=== PATIENT | male | born 1965 | race American Indian/Alaskan Native ===

== ENCOUNTER 2017-04-20 08:42 | Emergency (ER) | payer BC ==
--- NOTE | 2017-04-20 10:18 | Cat Scan Report ---
CT HEAD WITHOUT CONTRAST INDICATION: Syncope, right arm weakness. COMPARISON: None similar. FINDINGS: Noncontrast head CT demonstrates normal ventricles and sulci without acute or recent infarct, hemorrhage, mass effect or midline shift. No abnormal extra-axial fluid collections. Posterior fossa structures and basilar cisterns appear within normal limits. Symmetric eye globes. Clear paranasal sinuses and mastoid air cells. Intact calvarium. Normal overlying scalp soft tissues. Few missing teeth and a radiopaque dental material anteriorly incidentally noted. CONCLUSION: No acute intracranial CT abnormality, as described. Thank you for the opportunity to participate in this patient's care.
[2017-04-20 10:59] LABS: Basophils % (Auto) 0.4 % (0.0-1.8); Eosinophils % (Auto) 0.1 % (0.0-4.3); Hematocrit 45.7 % (35.5-45.6); Hemoglobin 14.8 gm/dl (11.8-15.2); Lymphocytes % (Auto) 21.5 % (13.4-35.0); Mean Corpuscular HGB Conc 32 % (32-34); Mean Corpuscular Hemoglobin 29 pg (28-32); Mean Corpuscular Volume 91 fl (84-94); Monocytes # (Auto) 0.7 K/mm3 (0.0-0.8); Platelet Count 184 K/mm3 (140-440); Red Blood Count 5.05 M/mm3 (3.65-5.03); Red Cell Distribution Width 13.9 % (13.2-15.2)
[2017-04-20 11:14] LABS: Partial Thromboplastin Time 30.6 Sec. (24.2-36.6)
[2017-04-20 11:19] LABS: BUN/Creatinine Ratio 12; Blood Urea Nitrogen 17 mg/dL (9-20); Calcium 9.2 mg/dL (8.4-10.2); Hemolysis Index 6
[2017-04-20] MEDS ORDERED: TORADOL IM ONE (18:29)
--- NOTE | 2017-04-20 18:35 | Emergency Department Report ---
ED General Adult HPI - General Chief complaint: Neuro Symptoms/Deficit Stated complaint: SYNCOPE, R ARM TINGLING Time Seen by Provider: 04/20/17 18:06 Source: patient Mode of arrival: Ambulatory Limitations: No Limitations - History of Present Illness Initial comments: 51 yo male who comes in today due to a syncopal episode. He states that he took on last pm his bystolic for blood pressure and mucinex shortly thereafter. He states that he was sitting in bed and started to feel funny. After that, he remembered coming to on the floor. He admits to cervical spine tenderness/ pain. States that he has never had an issue like this before. Admits to numbness/tingling in his right second/third digits in addition to cervical spine tenderness. Denies loss of bladder or bowel continence. -: Last night (1 am today ) Location: head, neck, upper extremity (right ) Radiation: non-radiation Severity scale (0 -10): 0 Quality: aching, other (throbbing ) Consistency: constant Improves with: none Associated Symptoms: denies other symptoms Treatments Prior to Arrival: none - Related Data Previous Rx's Medication Instructions Recorded Last Taken Type Cyclobenzaprine [Flexeril 10 MG 10 mg PO TID PRN #15 tablet 12/14/14 Unknown Rx TAB] Ibuprofen [Motrin] 800 mg PO Q8HR PRN #30 tablet 12/14/14 Unknown Rx Allergies Allergy/AdvReac Type Severity Reaction Status Date / Time No Known Allergies Allergy Verified 12/14/14 12:47 ED Review of Systems ROS: Stated complaint: SYNCOPE, R ARM TINGLING Other details as noted in HPI Constitutional: denies: chills, fever Eyes: denies: eye pain, eye discharge, vision change ENT: denies: ear pain, throat pain Respiratory: denies: cough, shortness of breath, wheezing Cardiovascular: denies: chest pain, palpitations Endocrine: no symptoms reported Gastrointestinal: denies: abdominal pain, nausea, diarrhea Genitourinary: denies: urgency, dysuria Musculoskeletal: other (neck pain ) Skin: denies: rash, lesions Neurological: other (numbness/tingling-right second/third digits ) Psychiatric: denies: anxiety, depression Hematological/Lymphatic: denies: easy bleeding, easy bruising ED Past Medical Hx - Past Medical History Previous Medical History?: Yes Hx Hypertension: Yes - Surgical History Hx Breast Surgery: No - Social History Smoking Status: Never Smoker Substance Use Type: None - Medications Home Medications: Home Medications Medication Instructions Recorded Confirmed Last Taken Type Cyclobenzaprine [Flexeril 10 MG 10 mg PO TID PRN #15 tablet 12/14/14 Unknown Rx TAB] Ibuprofen [Motrin] 800 mg PO Q8HR PRN #30 tablet 12/14/14 Unknown Rx ED Physical Exam - General Limitations: No Limitations General appearance: alert, in no apparent distress - Head Head exam: Present: atraumatic, normocephalic - Eye Eye exam: Present: normal appearance - ENT ENT exam: Present: mucous membranes moist - Neck Neck exam: Present: tenderness (on palpation) - Respiratory Respiratory exam: Present: normal lung sounds bilaterally. Absent: respiratory distress - Cardiovascular Cardiovascular Exam: Present: regular rate, normal rhythm. Absent: systolic murmur, diastolic murmur, rubs, gallop - Extremities Exam Extremities exam: Present: normal inspection - Back Exam Back exam: Present: normal inspection - Neurological Exam Neurological exam: Present: alert, oriented X3, CN II-XII intact - Psychiatric Psychiatric exam: Present: normal affect, normal mood - Skin Skin exam: Present: warm, dry, intact, normal color. Absent: rash ED Course Vital Signs 04/20/17 04/20/17 04/20/17 09:34 17:12 17:16 Temperature 99.1 F Pulse Rate 100 H 86 83 Respiratory 18 14 13 Rate Blood Pressure 130/96 133/94 Blood Pressure [Right] O2 Sat by Pulse 97 100 100 Oximetry 04/20/17 04/20/17 04/20/17 17:20 17:30 17:46 Temperature 98.1 F Pulse Rate 84 85 87 Respiratory 13 8 L 14 Rate Blood Pressure 133/97 133/97 Blood Pressure 133/94 [Right] O2 Sat by Pulse 100 99 100 Oximetry 04/20/17 04/20/17 04/20/17 18:00 18:16 18:30 Temperature Pulse Rate 82 88 86 Respiratory 20 14 22 Rate Blood Pressure 134/94 134/94 133/92 Blood Pressure [Right] O2 Sat by Pulse 99 Oximetry 04/20/17 04/20/17 04/20/17 19:33 19:42 19:46 Temperature Pulse Rate 93 H 94 H Respiratory 18 12 Rate Blood Pressure 133/92 133/92 Blood Pressure [Right] O2 Sat by Pulse 99 Oximetry ED Medical Decision Making - Lab Data Result diagrams: 04/20/17 10:33 04/20/17 10:33 - EKG Data -: EKG Interpreted by Me EKG shows normal: sinus rhythm Rate: normal - EKG Data When compared to previous EKG there are: previous EKG unavailable Interpretation: no acute changes, normal EKG - Radiology Data Radiology results: report reviewed (CT head/cervical spine-negative, Chest radiograph-negative ) - Medical Decision Making Polypharmacy Syncopal episode - Differential Diagnosis Polypharmacy, syncopal episode Critical care attestation.: If time is entered above; I have spent that time in minutes in the direct care of this critically ill patient, excluding procedure time. ED Disposition Clinical Impression: Polypharmacy, Episode of syncope Disposition: -01 TO HOME OR SELFCARE Is pt being admited?: No Does the pt Need Aspirin: No Condition: Stable Instructions: Syncope (ED) Additional Instructions: Please follow up with your provider as scheduled. Return to the ED for any chest pain, shortness of breath, lightheaded/dizziness, new onset weakness, neurologic deficits, or loss of bowel/bladder continence. Referrals: PRIMARY CARE, [Primary Care Provider] - 3-5 Days Time of Disposition: 20:28
--- NOTE | 2017-04-20 19:29 | Cat Scan Report ---
FINAL REPORT PROCEDURE: CT CERVICAL SPINE WO CON TECHNIQUE: Computerized tomography of the cervical spine was performed from the skull base to T1 without contrast material. HISTORY: neck pain-fall COMPARISON: No prior studies are available for comparison. FINDINGS: There is straightening of the usual cervical lordosis. 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 Degenerative changes are noted at C5-6 and C6-7, with disc space narrowing and osteophyte formation. No acute fracture or subluxation is seen. IMPRESSION: No acute fracture or subluxation is identified.
--- NOTE | 2017-04-20 19:58 | XRay Report ---
FINAL REPORT PROCEDURE: XR CHEST 1V AP TECHNIQUE: Chest radiograph anteroposterior view. CPT 06553 HISTORY: chest pain COMPARISON: No prior studies are available for comparison. FINDINGS: Heart: Normal. Mediastinum/Vessels: Normal. Lungs/Pleural space: Normal. Bony thorax: No acute osseous abnormality. Life support devices: None. IMPRESSION: No acute cardiopulmonary abnormality.
[2017-04-20 20:01] VITALS: BP 133/92
[2017-04-20 20:30] LABS: Bilirubin,Urine NEG (Negative); Blood,Urine NEG (Negative); Color,Urine Yellow (Yellow); Hyaline Casts,Urine 1 /LPF; Mucus,Urine FEW /HPF; Nitrite,Urine NEG (Negative); Urobilinogen,Urine < 2.0 mg/dL (<2.0)
[2017-04-20 20:32] LABS: Amphetamine Screen,Urine PRESUMPTIVE NEGATIVE; Benzodiazepines Screen,Urine PRESUMPTIVE NEGATIVE; Cannabinoid Screen,Urine PRESUMPTIVE NEGATIVE; Cocaine Screen,Urine PRESUMPTIVE NEGATIVE; Methadone Screen,Urine PRESUMPTIVE NEGATIVE; Opiate Screen,Urine PRESUMPTIVE NEGATIVE
== END 2017-04-20 21:05 | disposition home or self-care (01) ==
LOC: ED 08:42
DX: R55 Syncope and collapse (principal); M54.2 Cervicalgia; I10 Essential (primary) hypertension; R20.0 Anesthesia of skin; Z79.899 Other long term (current) drug therapy
CPT/HCPCS: 36415; 70450; 71045; 72125; 80048; 80307; 81001; 82962; 84484; 85025; 85610; 85670; 85730; 93005; 93010; 96372; 99285; J1885